=== PATIENT | female | born 1980 | race African-American/Black ===

== ENCOUNTER 2018-10-07 14:46 | Observation (INO) | payer SELFPAY ==
[~2018-10-07] VITALS: Ht 177.8 cm; Wt 79.5 kg
[~2018-10-07 14:46] MED LIST: ECZEMA CREAM TP; HYDROCORT TOP; LEXAPRO20 MG PO; LORTAB 5/500 501 TAB PO; MOTRIN 800800 MG/TAB PO; NAPROSYN375 MG PO; PEPCID 20MG TAB20 MG PO; PROMETHAZINE12.5 M5 PO; VALIUM 5MG T5 MG/TAB PO; ZYPREXA 5MG5 MG PO
[2018-10-07 15:07] LABS: COLLECTION METHOD CLEAN CATCH
[2018-10-07 15:14] LABS: BASO % 0.5 % (0.0-2.0); EOS # 0.1 (0.0-0.7); EOS % 0.6 % (0-4.0); GRAN # 4.9 (1.4-6.5); GRAN % 61.9 % (42.2-75.2); HEMOGLOBIN 13.6 g/dl (12.5-16.0); LYMPH # 2.3 (1.2-3.4); MEAN CELL VOLUME 86 fl (80.0-100.0); MEAN CORPUSCULAR HEMOGLOBIN 30 pg (27.0-31.0); MEAN CORPUSCULAR HGB CONC 35 g/dl (33.0-37.0); MEAN PLATELET VOLUME 9.9 fl (7.4-10.4); MONO # 0.6 (0.1-0.6); MONO % 7.7 % (1.7-9.3); PLATELET COUNT 318 K/mm3 (130-400); RED BLOOD COUNT 4.53 M/mm3 (4.10-5.30); REDCELL DISTRIBUTION WIDTH-CV 14.1 % (11.5-14.5)
[2018-10-07 15:26] LABS: AMORPHOUS CRYSTAL Present /uL; MUCOUS Present /lpf; PH 5 (5-8); SQUAMOUS EPITHELIAL 20-50 /hpf; URINE APPEARANCE Cloudy; URINE BACTERIA Rare /hpf; URINE BILIRUBIN Negative (NEGATIVE); URINE BLOOD 1+ (NEGATIVE); URINE COLOR Yellow; URINE GLUCOSE Negative (NEGATIVE); URINE KETONE Negative (NEGATIVE); URINE LEUKOCYTE ESTERASE 2+ (NEGATIVE); URINE NITRATE Negative (NEGATIVE); URINE PROTEIN(semi-quant) Negative (NEGATIVE); URINE UROBILINOGEN Negative (NEGATIVE)
[2018-10-07 15:26] LABS: ALANINE AMINOTRANSFERASE 8 U/L (9-52); ALBUMIN 4.5 gm/dL (3.5-5.0); ALKALINE PHOSPHATASE 48 U/L (50-136); ANION GAP 8 mmol/L (7-16); AST,SGOT 13 U/L (15-37); BILIRUBIN,TOTAL 0.4 mg/dL (0.0-1.0); BLOOD UREA NITROGEN 7 mg/dL (7-17); CALCIUM 9.5 mg/dL (8.4-10.2); CARBON DIOXIDE 22 mmol/L (22-30); CHLORIDE 107 mmol/L (98-107); CREATININE, serum 0.69 (0.52-1.25); GLUCOSE 102 mg/dL (74-106); LIPASE 55 U/L (23-300); POTASSIUM 4.1 mmol/L (3.4-5.0); SODIUM 137 mmol/L (137-145); TOTAL PROTEIN 8.2 gm/dL (6.4-8.2)
[2018-10-07 15:51] LABS: C-REACTIVE PROTEIN < 0.5 mg/dL (0.0-0.9)
[2018-10-07 16:29] LABS: COLLECTION METHOD CLEAN CATCH
[2018-10-07 16:38] LABS: PH 5 (5-8); SQUAMOUS EPITHELIAL 0-2 /hpf; URINE APPEARANCE Clear; URINE BACTERIA Rare /hpf; URINE BILIRUBIN Negative (NEGATIVE); URINE BLOOD 1+ (NEGATIVE); URINE COLOR Yellow; URINE GLUCOSE Negative (NEGATIVE); URINE KETONE Negative (NEGATIVE); URINE LEUKOCYTE ESTERASE Negative (NEGATIVE); URINE NITRATE Negative (NEGATIVE); URINE PROTEIN(semi-quant) Negative (NEGATIVE); URINE RBC 0-2 /hpf; URINE UROBILINOGEN Negative (NEGATIVE)
[2018-10-07] MEDS ORDERED: MOTRIN 800800 MG/TAB PO (21:32)
[2018-10-07] MEDS ORDERED: PERCOCET 325 MG1 TA2 PO (21:32)
[2018-10-07 22:15] VITALS: BP 129/89; PULSE 100; TEMP 97.5
--- NOTE | 2018-10-07 22:15 | NUR ---
RECEIVED FROM PACU. ALERT, PAIN 0/10, IV TO LEFT ARM. REQUESTS SNACK. SCDS PLACED. ROMAN LIGHT IN REACH. ORIENTED TO ROOM AND PLAN OF CARE
[2018-10-07 22:30] VITALS: BP 143/93; PULSE 65
[2018-10-07 22:45] VITALS: BP 128/78; PULSE 66
[2018-10-07 23:00] VITALS: BP 125/80; PULSE 85
[2018-10-07 23:15] VITALS: BP 109/72; PULSE 88
[2018-10-08 00:01] VITALS: BP 117/78; PULSE 71
[2018-10-08 00:30] VITALS: BP 103/59; PULSE 87
[2018-10-08 03:25] VITALS: BP 117/81; PULSE 77; TEMP 97.7
[2018-10-08 07:00] VITALS: BP 114/76; PULSE 76; TEMP 98
--- NOTE | 2018-10-08 10:09 | NUR ---
Initial visit attempt; Family resting, Pallet Assembler left card letting patient know of the availability of spiritual care at our hospital.
== END 2018-10-08 11:15 | disposition home or self-care (01) ==
LOC: COL.ER 14:46 → OB 20:19
PROVIDERS: Emergency Medicine; ADMIT Obstetrics & Gynecology
DX: N83.522 Torsion of left fallopian tube (principal); N83.8 Other noninflammatory disorders of ovary, fallopian tube and broad ligament; N70.11 Chronic salpingitis; K66.0 Peritoneal adhesions (postprocedural) (postinfection); F17.210 Nicotine dependence, cigarettes, uncomplicated; J44.9 Chronic obstructive pulmonary disease, unspecified; F31.9 Bipolar disorder, unspecified; E05.90 Thyrotoxicosis, unspecified without thyrotoxic crisis or storm; K21.9 Gastro-esophageal reflux disease without esophagitis
CPT/HCPCS: J1100; J1170; J1885; J2405; J2704; J2710; J3010; J7030; J7120; Q9967